=== PATIENT | female | born 1985 | race Caucasian/White ===

== ENCOUNTER 2016-05-30 10:35 | Emergency (ER) | payer BC ==
[2016-05-30 10:53] VITALS: BP 154/86
--- NOTE | 2016-05-30 12:27 | UC ---
Respiratory Complaint HPI - History of Current Complaint Chief Complaint: UCEar Stated Complaint: EAR PAIN,CONGESTION Time Seen by Provider: 05/30/16 12:16 Hx Obtained From: Patient Hx Last Menstrual Period: 1.5 weeks ago - has IUD ?: No Onset/Duration: Gradual Onset - has had URI over past 1-2 weeks, yesterday got R ear ache. also today her child was dx influenza (swab) at pediatrics. pt did not have a flu vacc this year Severity Initially: Mild Severity Currently: Moderate Aggravating Factors: Nothing Alleviating Factors: Nothing Associated Signs And Symptoms: Positive: Fever - off and on, URI, Nasal Congestion - Risk Factors Cardiac Risk Factors: Negative - Allergies/Home Medications Allergies/Adverse Reactions: Allergies Allergy/AdvReac Type Severity Reaction Status Date / Time Amoxicillin Allergy Mild Hives Verified 05/30/16 10:53 Penicillin G Allergy Hives Verified 05/30/16 10:53 Home Medications: Home Medications Lpbwkmetctufq-Lagebbowtn-Dqrmw [Vicks Dayquil/Nyquil Cold] 1 dose PO BEDTIME PRN 05/30/16 [History Confirmed 05/30/16] PMH/Surg Hx/FS Hx/Imm Hx Previously Healthy: Yes Endocrine History Of: Denies: Diabetes, Thyroid Disease Cardiovascular History Of: Denies: Cardiac Disorders, Hypertension Respiratory History Of: Denies: COPD, Asthma GI/ History Of: Denies: Ulcer - Surgical History Surgical History: Yes Surgery Procedure, Year, and Place: spleen and gall bladder removed 1991. wisdom teeth 2009, 04/08/15 - Family History Known Family History: Positive: None - Social History Occupation: Employed Full-time - entry level programmer care Lives: With Family Alcohol Use: Occasionally Alcohol Amount: Weekends on occasion Substance Use Type: None Smoking Status (MU): Never Smoked Tobacco Have You Smoked in the Last Year: No - Immunization History Most Recent Influenza Vaccination: 01/25/16 Most Recent Tetanus Shot: 01/03/15 Most Recent Pneumonia Vaccination: never Review of Systems Constitutional: Fever Skin: Negative Eyes: Negative ENT: Ear Ache, Other - nasal carlos Respiratory: Negative Cardiovascular: Negative Genitourinary: Negative Neurological: Negative Psychological: Negative All Other Systems Reviewed And Are Negative: Yes Physical Exam Triage Information Reviewed: Yes Appearance: Well-Appearing, No Pain Distress, Well-Nourished Vital Signs: Initial Vital Signs Temp 98.6 F 05/30/16 10:49 Pulse 76 05/30/16 10:49 Resp 16 05/30/16 10:49 BP 154/86 05/30/16 10:49 Pulse Ox 99 05/30/16 10:49 Vital Signs Reviewed: Yes Eyes: Positive: Conjunctiva Clear ENT: Positive: Pharynx normal, TM bulging, TM dull, TM red - R TM left normal, Other: - PND-clear Neck exam: Normal Neck: Positive: No Lymphadenopathy Respiratory Exam: Normal Respiratory: Positive: Lungs clear Cardiovascular Exam: Normal Cardiovascular: Positive: RRR Neurological Exam: Normal Psychological Exam: Normal Skin Exam: Normal Skin: Negative: rashes UC Diagnostic Evaluation - Laboratory O2 Sat by Pulse Oximetry: 99 Respiratory Course/Dx - Differential Dx/Diagnosis Differential Diagnosis/HQI/PQRI: Influenza, Lower Resp Infection, Sinusitis, Other - OM Provider Diagnoses: ROM, sinusitis Discharge - Discharge Plan Condition: Stable Disposition: HOME Prescriptions: Oseltamivir CAP* [Tamiflu CAP*] 75 mg PO DAILY #10 cap Sulfamethox/Trimethoprim DS* [Bactrim DS 800/160 TAB*] 1 tab PO BID #20 tab Patient Education Materials: Influenza (ED), Otitis Media (ED) Referrals: Yoseph Haas MD [Primary Care Provider] - 3 Days (if no better) Additional Instructions: start Tamiflu today Use Bactrim for ear infection drink plenty of fluids and report worsening symptoms
== END 2016-05-30 12:40 | disposition home or self-care (01) ==
LOC: UCEAST 10:35
DX: H66.91 Otitis media, unspecified, right ear (principal); J32.9 Chronic sinusitis, unspecified; Z88.1 Allergy status to other antibiotic agents; Z88.0 Allergy status to penicillin
CPT/HCPCS: 99212; G0463

== ENCOUNTER 2016-08-20 17:38 | Emergency (ER) | payer BC ==
[2016-08-20 18:00] VITALS: BP 166/83
--- NOTE | 2016-08-20 18:41 | UC ---
Respiratory Complaint HPI - HPI Summary HPI Summary: The patient comes in today for: 1. Cough, hoarse voice, right otalgia, sore throat: Onset: 3 days ago. Palliative/provocative: Nyquil helped her to sleep. Quality: Ache, irritation in throat. Region: Upper respiratory. Severity: 4/10 Time: Constant. Associated symptoms: Fevers: No temperature taken. Cough: Dry. Wheezing: NOne Shortness of breath: "a little." Rhinitis: thin, greenish. Sinus pressures: None. Sore throat: Present. * - History of Current Complaint Chief Complaint: UCRespiratory Stated Complaint: COUGH,EAR PAIN Time Seen by Provider: 08/20/16 18:33 Hx Obtained From: Patient Hx Last Menstrual Period: Mirena IUD - Allergies/Home Medications Allergies/Adverse Reactions: Allergies Allergy/AdvReac Type Severity Reaction Status Date / Time Amoxicillin Allergy Mild Hives Verified 08/20/16 18:00 Penicillin G Allergy Hives Verified 08/20/16 18:00 Home Medications: Home Medications Odcxysukqftfy-Xwaazpypnf-Bcegg [Daytime/Nite Time Cold/Fl] 1 dose PO DAILY PRN 08/20/16 [History Confirmed 08/20/16] PMH/Surg Hx/FS Hx/Imm Hx Previously Healthy: Yes Endocrine History Of: Denies: Diabetes, Thyroid Disease, Hyperthyroidism, Hypothyroidism, Dyslipidemia Cardiovascular History Of: Denies: Cardiac Disorders, Hypertension, Pacemaker/ICD, Myocardial Infarction , Congestive Heart Failure, Atrial Fibrillation, Deep Vein Thrombosis, Bleeding Disorders Respiratory History Of: Denies: COPD, Asthma, Bronchitis, Pneumonia, Pulmonary Embolism GI/ History Of: Denies: Gastroesophageal Reflux, Ulcer, Gastrointestinal Bleed, Gall Bladder Disease, Kidney Stones, Diverticulitis, Renal Disease, Urosepsis Neurological History Of: Denies: TIA, CVA, Dementia, Seizures, Migraine Psychological History Of: Denies: Anxiety, Depression, Bipolar Disorder, Schizophrenia, Post Traumatic Stress Disorder Cancer History Of: Denies: Lung Cancer, Colorectal Cancer, Breast Cancer, Prostate Cancer, Cervical Cancer Other History Of: Negative For: HIV, Hepatitis B, Hepatitis C, Anticoagulant Therapy - Surgical History Surgical History: Yes Surgery Procedure, Year, and Place: spleen and gall bladder removed 1991. wisdom teeth 2009, 04/08/15 - Family History Known Family History: Positive: Cardiac Disease, Hypertension - Social History Occupation: Employed Full-time Alcohol Use: Occasionally Alcohol Amount: Weekends on occasion Substance Use Type: None Smoking Status (MU): Never Smoked Tobacco Have You Smoked in the Last Year: No - Immunization History Most Recent Influenza Vaccination: 01/25/16 Most Recent Tetanus Shot: 01/03/15 Most Recent Pneumonia Vaccination: never Review of Systems Constitutional: Negative Skin: Negative Eyes: Negative ENT: Ear Ache, Nasal Discharge Respiratory: Shortness Of Breath, Cough Cardiovascular: Negative Gastrointestinal: Negative Genitourinary: Negative All Other Systems Reviewed And Are Negative: Yes Physical Exam Triage Information Reviewed: Yes Appearance: Well-Appearing, No Pain Distress, Well-Nourished Vital Signs: Initial Vital Signs Temp 97.5 F 08/20/16 17:55 Pulse 69 08/20/16 17:55 Resp 16 08/20/16 17:55 BP 166/83 08/20/16 17:55 Pulse Ox 99 08/20/16 17:55 Vital Signs Reviewed: Yes Eyes: Positive: Conjunctiva Clear. Negative: Discharge ENT: Positive: Hearing grossly normal. Negative: Pharyngeal erythema, Nasal congestion, Nasal drainage, TM bulging, TM dull, TM red, Tonsillar swelling, Tonsillar exudate, Muffled/hoarse voice Dental: Negative: Gross Decay/Caries @, Dental Fracture @ Neck: Positive: Supple, Nontender, No Lymphadenopathy. Negative: Nuchal Rigidity Respiratory: Positive: Lungs clear, No respiratory distress, No accessory muscle use. Negative: Crackles, Wheezing Cardiovascular: Positive: RRR, No Murmur Abdomen Description: Positive: Nontender, No Organomegaly, Soft. Negative: Distended, Guarding Musculoskeletal: Positive: Strength Intact, ROM Intact Neurological: Positive: Alert, Muscle Tone Normal Psychological: Positive: Age Appropriate Behavior, Consolable Skin: Negative: rashes, breakdown UC Diagnostic Evaluation - Laboratory O2 Sat by Pulse Oximetry: 99 Diagnostic Studies Comment: Strep test: (-) Respiratory Course/Dx - Course Course Of Treatment: Patient was told of the negative strep test, normal ear exam and impression that she has a viral upper respiratory infection. She was concerned that she may get worse, and therefore was told of the option of sending an antibiotic in the event she does develop symptoms of sinusitis. She said that she would like to do this, but did not want Z pack. - Differential Dx/Diagnosis Provider Diagnoses: Upper respiratory infection. Discharge - Discharge Plan Condition: Stable Disposition: HOME Patient Education Materials: Upper Respiratory Infection (ED) Referrals: Yoseph Haas MD [Primary Care Provider] - 1 Week (Please see your primary care provider in a week to see how well you are doing. If you get worse, please be seen sooner in the ER or through us.)
== END 2016-08-20 19:19 | disposition home or self-care (01) ==
LOC: UCEAST 17:38
DX: J06.9 Acute upper respiratory infection, unspecified (principal)
CPT/HCPCS: 87651; 99212; G0463

== ENCOUNTER 2017-01-26 11:26 | Emergency (ER) | payer BC ==
[2017-01-26 11:47] VITALS: BP 150/77
--- NOTE | 2017-01-26 12:45 | UC ---
FLU HPI - HPI Summary HPI Summary: 31 y/o female with PMH of HTN, allergies who presents with 1) L eye drainage x 1 day with crusty eye this morning. 2) cough/ congestion/ headache. 3) fatigue. patient states having fever, chills, sometimes productive cough with green phlegm. is around children. - History of Current Complaint Chief Complaint: UCRespiratory Stated Complaint: COUGH Time Seen by Provider: 01/26/17 12:21 Hx Obtained From: Patient Hx Last Menstrual Period: iud ?: No Onset/Duration: Sudden Onset Severity Currently: Moderate Severity Initially: Moderate - Allergy/Home Medications Allergies/Adverse Reactions: Allergies Allergy/AdvReac Type Severity Reaction Status Date / Time Amoxicillin Allergy Mild Hives Verified 08/20/16 18:00 Penicillin G Allergy Hives Verified 08/20/16 18:00 Home Medications: Home Medications Amlodipine Besylate [Norvasc 2.5 mg tab] 2.5 mg PO DAILY 01/26/17 [History Confirmed 01/26/17] Ipratropium [place] 1 pow XX 01/26/17 [History] Loratadine 10 mg PO 01/26/17 [History] Fdzfjtfpbxsvn-Exvqfcrett-Uvqia [Nyquil Severe Cold/Flu 5-6.25-10-325 mg/15Ml] 1 liq PO 01/26/17 [History Confirmed 01/26/17] PMH/Surg Hx/FS Hx/Imm Hx Previously Healthy: Yes - htn, asthma Other History Of: Negative For: HIV, Hepatitis B, Hepatitis C, Anticoagulant Therapy - Surgical History Surgical History: Yes Surgery Procedure, Year, and Place: spleen and gall bladder removed 1991. wisdom teeth 2009, 04/08/15 - Family History Known Family History: Positive: Cardiac Disease, Hypertension - Social History Alcohol Use: Occasionally Alcohol Amount: Weekends on occasion Substance Use Type: None Smoking Status (MU): Never Smoked Tobacco Have You Smoked in the Last Year: No - Immunization History Most Recent Influenza Vaccination: 01/25/16 Most Recent Tetanus Shot: 01/03/15 Most Recent Pneumonia Vaccination: never Review of Systems Constitutional: Fever, Chills, Fatigue Eyes: Drainage ENT: Sore Throat, Sinus Congestion, Sinus Pain/Tenderness Respiratory: Cough Is Patient Immunocompromised?: No All Other Systems Reviewed And Are Negative: Yes Physical Exam Triage Information Reviewed: Yes Appearance: Well-Appearing, No Pain Distress, Well-Nourished Vital Signs: Initial Vital Signs Temp 98.6 F 01/26/17 11:44 Pulse 102 01/26/17 11:44 Resp 18 01/26/17 11:44 BP 150/77 01/26/17 11:44 Pulse Ox 98 01/26/17 11:44 Vital Signs Reviewed: Yes Eyes: Positive: Conjunctiva Clear ENT: Positive: Pharyngeal erythema - mild, TM red - left side, Tonsillar swelling - minimal Neck: Positive: Supple, Nontender, Enlarged Nodes @ - b/l subman. Respiratory: Positive: Chest non-tender, Lungs clear, Normal breath sounds, No respiratory distress, No accessory muscle use. Negative: Crackles, Rhonchi, Stridor, Wheezing Cardiovascular: Positive: RRR, No Murmur, Pulses Normal Musculoskeletal Exam: Normal Neurological Exam: Normal Psychological Exam: Normal Skin Exam: Normal Flu Course/Dx - Course Course Of Treatment: antibiotics given, work note. - Differential Dx/Diagnosis Differential Diagnosis/HQI/PQRI: Bronchitis, Broncholiolitis, Upper Respiratory Infection Provider Diagnoses: conjunctivitis, L eye, sinusitis Discharge - Discharge Plan Condition: Good Disposition: HOME Prescriptions: Ciprofloxacin 0.3% OPTH.NILESH* [Cipro 0.3% Opth*] 1 drop LEFT EYE Q4H #1 btl Sulfamethox/Trimethoprim DS* [Bactrim DS 800/160 TAB*] 1 tab PO BID #10 tab guaiFENesin/CODIEN 100MG-10MG* [Robitussin AC 100Mg-10Mg*] 5 ml PO Q4H PRN #30 ml MDD 2 PRN Reason: Cough Patient Education Materials: Sinusitis (ED), Conjunctivitis (ED) Forms: *Work Release Referrals: Yoseph Haas MD [Primary Care Provider] - Additional Instructions: - conjuctivitis- antibiotic eye drops x 5 day or until symptom free x 24 hours , very contagious - Sinusitis- antibiotics as directed. - increase fluid intake
== END 2017-01-26 13:05 | disposition home or self-care (01) ==
LOC: UCEAST 11:26
DX: H10.32 Unspecified acute conjunctivitis, left eye (principal); J32.9 Chronic sinusitis, unspecified; I10 Essential (primary) hypertension; J45.909 Unspecified asthma, uncomplicated; Z90.49 Acquired absence of other specified parts of digestive tract; Z90.81 Acquired absence of spleen; Z88.0 Allergy status to penicillin
CPT/HCPCS: 99212; G0463

== ENCOUNTER 2018-05-25 05:51 | Inpatient (IN) | payer BC ==
[~2018-05-25 05:51] MED LIST: Buffered Lidocaine 1% SYRIN* 1 ML/SYRINGE INTRADERM ONE
[2018-05-25] MEDS ORDERED: Sodium Citrate/Citric Acid* 15 ML UDC PO ONE (06:00)
[2018-05-25] MEDS ORDERED: Lactated Ringers 1000 ML Bag* 1,000 ML IV SCH ×2 (06:00→10:00)
[2018-05-25] MEDS ORDERED: Morphine PF AMP (0.5MG/ML)* 5 MG/10 ML AMP ONE (07:31)
[2018-05-25] MEDS ORDERED: ceFOXitin 2 GM IVPREMIX* 2 GM/50 ML BAG IVPB ONE (08:00)
[2018-05-25] MEDS ORDERED: Lidocaine 2% PF* 10 ML AMP ONE (08:44)
[2018-05-25] MEDS ORDERED: EPHEDrine (Pressors)* 50 MG/ML VIAL ONE (08:44)
[2018-05-25] MEDS ORDERED: Phenylephrine IV* 40 MCG/ML 10 ML SYRINGE ONE (08:44)
[2018-05-25] MEDS ORDERED: OXYTOCIN* 10 UNITS/ML 1 ML VIAL ONE (08:44)
[2018-05-25] MEDS ORDERED: Remifentanil* 2 MG VIAL ONE (08:46)
[2018-05-25] MEDS ORDERED: Naloxone* 0.4 MG/ML 1 ML VIAL IV PRN ×2 (09:09→09:12)
[2018-05-25] MEDS ORDERED: fentaNYL* 50 MCG/ML 2 ML VIAL (100 MCG VIAL) IV PRN (09:09)
[2018-05-25] MEDS ORDERED: Ketorolac INJ* 30 MG/ML 1 ML VIAL ONE (09:11)
[2018-05-25] MEDS ORDERED: oxyCODONE/Acetamin 5/325 MG* TAB PO PRN (09:12)
[2018-05-25] MEDS ORDERED: Naloxone* 2 MG in NS 0.9% 250 ML* 250 ML IV PRN (09:12)
[2018-05-25] MEDS ORDERED: Nalbuphine* 10 MG/ML 1 ML VIAL IV PRN (09:12)
[2018-05-25] MEDS ORDERED: Ketorolac INJ* 30 MG/ML 1 ML VIAL IV PRN (09:12)
[2018-05-25] MEDS ORDERED: Ondansetron INJ* 2 MG/ML VIAL IV PRN (09:12)
[2018-05-25] MEDS ORDERED: Glycerin ADULT SUPP PR PRN (09:48)
[2018-05-25] MEDS ORDERED: Witch Hazel PAD* JAR TOPICAL PRN (09:48)
[2018-05-25] MEDS ORDERED: Oxytocin in LR* 20 UNITS/1,000 ML BAG IVPB ONE (09:50)
[2018-05-25] MEDS: Simethicone TAB* 80 MG TAB.CHEW PO SCH ×3 (13:26→20:15)
[2018-05-25] MEDS: Docusate CAP* 100 MG PO SCH ×2 (13:26→20:15)
[2018-05-25] MEDS: Acetaminophen TAB* 325 MG PO PRN ×2 (14:29→20:15)
[2018-05-25] MEDS: Ibuprofen TAB* 600 MG PO PRN ×2 (16:10→23:44)
--- NOTE | 2018-05-25 22:10 | OP ---
D\ATE OF OPERATION: 05/25/18 - ROOM #116 DATE OF : 81 SURGEON: Citlalli Hein MD SUPERVISOR COLOR MAKING: Henny Ray CNM and Rox Silvestre CNM ANESTHESIA: Spinal. ANESTHESIOLOGIST: Dr. Carver. PRE-OP DIAGNOSIS: Thirty nine plus 2 weeks gestation with gestational hypertension and history of . POST-OP DIAGNOSIS: Thirty nine plus 2 weeks gestation with gestational hypertension and history of . OPERATIVE PROCEDURE: Repeat low-transverse section with vacuum assist. ESTIMATED BLOOD LOSS: 700 cc. URINE OUTPUT: 100 cc. IV FLUIDS: 2000 cc lactated Ringer's. MATERIALS TO LAB: Cord blood. INDICATIONS: This patient is a 32-year-old 2, para 1, who presented today for her scheduled section. The patient had history of a previous C- section and had recently also developed mild gestational hypertension. She was extensively counseled and consent was signed. FINDINGS: Normal-appearing uterus, fallopian tubes, and ovaries. Delivery is productive of a female infant weighing 7 pounds, and with Apgars of 9 and 9. Time of delivery was 0842. COMPLICATIONS: None. DESCRIPTION OF PROCEDURE: The risks, benefits, and alternatives were described to the patient, and informed consent was obtained. The patient was taken to the operating room with IV running, where spinal anesthesia was induced and found to be adequate. The patient was prepped and draped in normal sterile fashion in the dorsal supine position with a leftward tilt. A Pfannenstiel skin incision was made with a scalpel through the patient's previous incision. This was carried down to the underlying fascia using the scalpel. The fascia was scored in the midline, and the incision was extended using Graham scissors. The fascia was dissected off the underlying rectus muscles using blunt and sharp dissection. The rectus muscles were in the midline using dissection with a Carolina clamp. The peritoneum was then entered bluntly. A bladder blade was placed. A bladder flap was created sharply using Metzenbaum scissors. A low transverse uterine incision was then made with the scalpel. This was carried down to the amniotic membranes. The lower uterus was quite thick as the pt had not labored. The membranes were then ruptured, productive of clear fluid. The uterine incision was extended using blunt traction. The head was grasped and brought to the incision, but, with fundal pressure, the infant could not be adequately pushed down. A Kiwi vacuum was placed on the head and with gentle traction and firm fundal pressure, the head was delivered. The shoulders then were also both delivered and the body followed. The infant had excellent tone and cried immediately on delivery. The cord was doubly clamped and cut. The was then handed to the awaiting keymodule assembly machine tender. Cord blood was collected. The placenta was delivered with manual extraction. The uterus was then exteriorized and cleared of all clots and debris. The uterine incision was then reapproximated using 0 Vicryl in a running-locked fashion. A second layer of imbricating 0 Vicryl sutures was then also placed for good hemostasis. The posterior cul-de-sac was irrigated with saline. The uterus was then returned to the abdomen. The incision was reinspected and still noted to be hemostatic. The peritoneum was closed with 3-0 Vicryl in a running fashion. The fascia was closed with 0 Polysorb in a running fashion. The subcutaneous tissues were copiously irrigated and made hemostatic using the bovie. The subcutaneous tissues were then reapproximated using 3-0 Vicryl in interrupted sutures. The skin was then closed with 4-0 Monocryl. Mastisol and steristrips were then applied. A sterile bandage was then placed over the incision. The patient tolerated the procedure well. Sponge, lap, and needle counts were correct x2. [id number]/[facility] #: [id number] MTDD
[2018-05-26] MEDS ORDERED: oxyCODONE/Acetamin 5/325 MG* TAB PO PRN ×2 (00:11)
[2018-05-26] MEDS: Acetaminophen TAB* 325 MG PO PRN ×3 (03:50→21:44)
[2018-05-26] MEDS: Ibuprofen TAB* 600 MG PO PRN ×3 (06:43→19:35)
[2018-05-26 07:08] LABS: Hematocrit 31 % (35-47); Hemoglobin 10.6 g/dl (12.0-16.0); Mean Corpuscular HGB Conc 34 g/dl (31-36); Mean Corpuscular Hemoglobin 29 pg (27-31); Mean Corpuscular Volume 86 fL (80-97); Mean Platelet Volume 9.3 fL (7.4-10.4); Platelet Count 306 10^3/ul (150-450); Red Cell Distribution Width 14 % (10.5-15); White Blood Count 17.3 10^3/ul (3.5-10.8)
[2018-05-26 07:57] LABS: ABS Basophils 0 10^3/ul (0-0.2); ABS Eosinophils 0.2 10^3/ul (0-0.6); ABS Lymphocytes 2.3 10^3/ul (1.0-4.8); ABS Monocytes 2.3 10^3/ul (0-0.8); ABS Neutrophils 12.5 10^3/ul (1.5-7.7); ABS Nucleated RBC 0 10^3/ul; Eosinophil % 0.9 %; Lymphocyte % 13.5 %; Nucleated Red Blood Cells % 0
[2018-05-26] MEDS ORDERED: Ferrous Gluconate TAB* 324 MG TAB PO SCH (09:00)
[2018-05-26] MEDS: Simethicone TAB* 80 MG TAB.CHEW PO SCH ×4 (09:15→21:45)
[2018-05-26] MEDS: Docusate CAP* 100 MG PO SCH ×3 (09:15→21:44)
[2018-05-26] MEDS ORDERED: Measles, Mumps,Rubella VACC* 0.5 ML/VIAL SUBCUT ONE (14:45)
[2018-05-27] MEDS: Ibuprofen TAB* 600 MG PO PRN ×3 (00:57→18:05)
[2018-05-27] MEDS: Acetaminophen TAB* 325 MG PO PRN ×2 (04:00→21:11)
[2018-05-27] MEDS: Simethicone TAB* 80 MG TAB.CHEW PO SCH ×4 (08:45→21:11)
[2018-05-27] MEDS: Docusate CAP* 100 MG PO SCH ×3 (08:45→21:11)
[2018-05-28] MEDS: Ibuprofen TAB* 600 MG PO PRN ×3 (00:26→14:42)
[2018-05-28] MEDS: Docusate CAP* 100 MG PO SCH ×2 (08:05→13:20)
[2018-05-28] MEDS: Simethicone TAB* 80 MG TAB.CHEW PO SCH ×2 (08:05→13:20)
[2018-05-28 08:12] VITALS: BP 148/85
== END 2018-05-28 18:15 | disposition home or self-care (01) | DRG 540 ==
LOC: MCHOB 05:51
PROVIDERS: ADMIT Obstetrics & Gynecology; ATTEND Obstetrics & Gynecology
PROC: 10D00Z1 Extraction of Products of Conception, Low, Open Approach (ICD-10-PCS; principal; 2018-05-25 07:45)
DX: O34.211 Maternal care for low transverse scar from previous cesarean delivery (principal); O13.4 Gestational [pregnancy-induced] hypertension without significant proteinuria, complicating childbirth; O69.81X0 Labor and delivery complicated by cord around neck, without compression, not applicable or unspecified; Z3A.39 39 weeks gestation of pregnancy; Z37.0 Single live birth
CPT/HCPCS: 36415; 85025; A9270-GY; J0694; J1885; J2001; J2590

== ENCOUNTER 2018-08-04 10:17 | Emergency (ER) | payer BC ==
[2018-08-04 10:35] VITALS: BP 170/100
--- NOTE | 2018-08-04 11:10 | UC ---
Eye Complaint HPI - HPI Summary HPI Summary: 32 -year-old female who has had a red eye over the past 24 hours with yellowish drainage. She just been in the hospital with her daughter who was a patient for 4 days. The mother has not had any cold symptoms recently. - History of Current Complaint Chief Complaint: UCEye Stated Complaint: EYE COMPLAINT Time Seen by Provider: 08/04/18 10:59 Hx Obtained From: Patient Hx Last Menstrual Period: 2 weeks ago ?: No - breast-feeding Onset/Duration: Gradual Onset Timing: Constant Severity Initially: Mild Severity Currently: Mild Pain Intensity: 1 Location of Injury: Other - No Injury, no feeling of foreign body. Aggravating Factor(s): Nothing Alleviating Factor(s): Nothing Associated Signs And Symptoms: Positive: Drainage (Purulent) - Yellow crusty drainage this morning. - Allergies/Home Medications Allergies/Adverse Reactions: Allergies Allergy/AdvReac Type Severity Reaction Status Date / Time amoxicillin Allergy Hives Verified 08/04/18 10:28 Penicillins Allergy Hives Verified 08/04/18 10:28 PMH/Surg Hx/FS Hx/Imm Hx Previously Healthy: Yes GI/ History: Other - 10 Weeks Other History Of: Negative For: HIV, Hepatitis B, Hepatitis C, Anticoagulant Therapy - Surgical History Surgical History: Yes Surgery Procedure, Year, and Place: spleen and gall bladder removed 1991. wisdom teeth 2009, 04/08/15 - Family History Known Family History: Positive: Cardiac Disease, Hypertension - Social History Alcohol Use: Rare Alcohol Amount: Weekends on occasion Substance Use Type: None Smoking Status (MU): Never Smoked Tobacco Have You Smoked in the Last Year: No - Immunization History Most Recent Influenza Vaccination: 12/31/17 Most Recent Tetanus Shot: 01/03/15 Most Recent Pneumonia Vaccination: never Review of Systems All Other Systems Reviewed And Are Negative: Yes Eyes: Positive: Drainage - Yellow drainage and redness right eye., Eye Redness Is Patient Immunocompromised?: No Physical Exam Triage Information Reviewed: Yes Appearance: Well-Appearing, No Pain Distress, Well-Nourished Vital Signs: Initial Vital Signs Temp 97.3 F 08/04/18 10:30 Pulse 83 08/04/18 10:30 Resp 18 08/04/18 10:30 BP 170/100 08/04/18 10:30 Pulse Ox 98 08/04/18 10:30 Vital Signs Reviewed: Yes Eyes: Positive: Conjunctiva Inflamed, Discharge - All amount of yellow drainage at the inner canthus of her right eye. Stye formation is noted. ENT: Positive: Normal ENT inspection, Hearing grossly normal, Pharynx normal, TMs normal, Uvula midline Neck: Positive: Supple, Nontender, No Lymphadenopathy Respiratory: Positive: Lungs clear, Normal breath sounds, No respiratory distress, No accessory muscle use Cardiovascular: Positive: RRR, No Murmur, Pulses Normal, Brisk Capillary Refill Eye Complaint Course/Dx - Course Course Of Treatment: Patient is comfortable here. I'm going to treat her with tobramycin ophthalmic drops 1 drop in the right eye every 4 hours while awake for 7 days. Good handwashing. He is to follow-up with an dental technology advisor if no improvement in 3 or 4 days. - Differential Dx/Diagnosis Provider Diagnosis: Conjunctivitis Discharge - Sign-Out/Discharge Documenting (check all that apply): Patient Departure All imaging exams completed and their final reports reviewed: No Studies - Discharge Plan Condition: Fair Disposition: HOME Prescriptions: Tobramycin 0.3% OPHTH.NILESH* 1 drop RIGHT EYE Q4H 7 Days #1 btl Patient Education Materials: Conjunctivitis (ED) Referrals: Yoseph Haas MD [Primary Care Provider] - Additional Instructions: Good handwashing. Follow up with your primary care provider or an dental technology advisor on Wednesday if no improvement. - Billing Disposition and Condition Condition: FAIR Disposition: Home
== END 2018-08-04 11:19 | disposition home or self-care (01) ==
LOC: UCEAST 10:17
DX: H10.31 Unspecified acute conjunctivitis, right eye (principal); Z88.0 Allergy status to penicillin
CPT/HCPCS: 99212; G0463

== ENCOUNTER 2018-08-07 16:41 | Emergency (ER) | payer BC ==
--- NOTE | 2018-08-07 16:44 | UC ---
Ear Complaint HPI - History of Current Complaint Stated Complaint: EAR COMPLAINT, SORE THROAT Time Seen by Provider: 08/07/18 16:42 Hx Last Menstrual Period: 2 weeks ago - Allergies/Home Medications Allergies/Adverse Reactions: Allergies Allergy/AdvReac Type Severity Reaction Status Date / Time amoxicillin Allergy Hives Verified 08/04/18 10:28 Penicillins Allergy Hives Verified 08/04/18 10:28 PMH/Surg Hx/FS Hx/Imm Hx Other History Of: Negative For: HIV, Hepatitis B, Hepatitis C, Anticoagulant Therapy - Surgical History Surgical History: Yes Surgery Procedure, Year, and Place: spleen and gall bladder removed 1991. wisdom teeth 2009, 04/08/15 - Family History Known Family History: Positive: Cardiac Disease, Hypertension - Social History Alcohol Use: Rare Alcohol Amount: Weekends on occasion Substance Use Type: None Smoking Status (MU): Never Smoked Tobacco Have You Smoked in the Last Year: No - Immunization History Most Recent Influenza Vaccination: 12/31/17 Most Recent Tetanus Shot: 01/03/15 Most Recent Pneumonia Vaccination: never Discharge - Discharge Plan Referrals: Yoseph Haas MD [Primary Care Provider] -
[2018-08-07 17:02] VITALS: BP 143/101
--- NOTE | 2018-08-07 17:12 | UC ---
FLU HPI - HPI Summary HPI Summary: 32 year old female presents with 2 day history of fever, severe nasal congestion , green nasal discharge, sinus pressure, ear pain, and sore throat. She was seen at this facility on 08/04/2018 for conjunctivitis. States her symptoms started the next day. Her daughter was recently hospitalized for URI symptoms. Denies dysphagia, cough, chest pain, SOB, abdominal pain, nausea, or vomiting. She is currently breast feeding but does supplement with formula. - History of Current Complaint Chief Complaint: UCGeneralIllness Stated Complaint: EAR COMPLAINT, SORE THROAT Time Seen by Provider: 08/07/18 16:42 Hx Obtained From: Patient Hx Last Menstrual Period: 2 weeks ago Pain Intensity: 6 - Allergy/Home Medications Allergies/Adverse Reactions: Allergies Allergy/AdvReac Type Severity Reaction Status Date / Time amoxicillin Allergy Hives Verified 08/07/18 17:02 Penicillins Allergy Hives Verified 08/07/18 17:02 Home Medications: Home Medications Ferrous Sulfate TAB* 325 mg PO DAILY 08/07/18 [History Confirmed 08/07/18] PMH/Surg Hx/FS Hx/Imm Hx - Additional Past Medical History Additional PMH: Hereditary spherocytosis Other History Of: Negative For: HIV, Hepatitis B, Hepatitis C, Anticoagulant Therapy - Surgical History Surgical History: Yes Surgery Procedure, Year, and Place: spleen and gall bladder removed 1991. wisdom teeth 2009, 04/08/15, 05/25/2018 - Family History Known Family History: Positive: Cardiac Disease, Hypertension - Social History Occupation: Employed Full-time Lives: With Family Alcohol Use: Rare Alcohol Amount: Weekends on occasion Substance Use Type: None Smoking Status (MU): Never Smoked Tobacco Have You Smoked in the Last Year: No - Immunization History Most Recent Influenza Vaccination: 12/31/17 Most Recent Tetanus Shot: 01/03/15 Most Recent Pneumonia Vaccination: never Review of Systems All Other Systems Reviewed And Are Negative: Yes Constitutional: Positive: Fever, Chills, Fatigue, Other - Malaise Skin: Negative: Rash Eyes: Negative: Drainage, Eye Redness ENT: Positive: Sore Throat, Ear Ache, Nasal Discharge, Sinus Congestion, Sinus Pain/Tenderness Respiratory: Negative: Shortness Of Breath, Cough Cardiovascular: Negative: Palpitations, Chest Pain Gastrointestinal: Negative: Abdominal Pain, Vomiting, Diarrhea, Nausea Genitourinary: Positive: Negative Musculoskeletal: Positive: Negative Neurological: Positive: Negative Is Patient Immunocompromised?: No Physical Exam - Summary Physical Exam Summary: GENERAL APPEARANCE: Well developed, well nourished, alert and cooperative, and appears to be in no acute distress. EYES: Conjunctiva clear. No drainage. EARS: External auditory canals clear, hearing grossly intact. Right TM erythematous and dull. Left TM opaque with good cone of light. NOSE: Moderate nasal congestion with mucosal erythema and edema. Maxillary sinus tenderness. THROAT: Pharyngeal cobblestoning. No tonsilar inflammation, swelling, exudate, or lesions. Uvula midline. Oral cavity normal. Teeth and gingiva in good general condition. NECK: Neck supple, non-tender without lymphadenopathy. CARDIAC: Normal S1 and S2. No S3, S4 or murmurs. Rhythm is regular. There is no peripheral edema, cyanosis or pallor. Extremities are warm and well perfused. Capillary refill is less than 2 seconds. Peripheral pulses intact. LUNGS: Clear to auscultation without rales, rhonchi, wheezing or diminished breath sounds. ABDOMEN: Positive bowel sounds. Soft, nondistended, nontender. No guarding or rebound. No masses or hepatosplenomegally. MUSKULOSKELETAL: ROM intact to all extremities. No joint erythema or tenderness. Normal muscular development. Normal gait. SKIN: Skin normal color, texture and turgor with no lesions or eruptions. Triage Information Reviewed: Yes Vital Signs: Initial Vital Signs Temp 100.1 F 08/07/18 16:57 Pulse 109 08/07/18 16:57 Resp 20 08/07/18 16:57 BP 143/101 08/07/18 16:57 Pulse Ox 100 08/07/18 16:57 Vital Signs Reviewed: Yes Flu Course/Dx - Course Course Of Treatment: 32 year old female presents with 2 day history of fever, severe nasal congestion , green nasal discharge, sinus pressure, ear pain, and sore throat. She was seen at this facility on 08/04/2018 for conjunctivitis. States her symptoms started the next day. Her infant daughter was recently hospitalized for URI symptoms. Denies dysphagia, cough, chest pain, SOB, abdominal pain, nausea, or vomiting. She is currently breast feeding but does supplement with formula. Mildly elevated temperature of 100.9 F. Hypertensive otherwise vital signs stable. Exam was remarkable for moderate nasal congestion with mucosal erythema and edema, maxillary sinus tenderness, right erythematous and dull TM. 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 Will treat with doxycycline 100 mg BID x 7 days as well as recommend symptomatic treatment including fluticasone nasal spray and saline rinses. She is to follow up with her PCP in 3-5 days if symptoms persist. Anticipatory guidance and warning symptoms reviewed with patient. Verbalizes understanding and agrees with POC. - Differential Dx/Diagnosis Differential Diagnosis/HQI/PQRI: Broncholiolitis, Influenza, Pneumonia, Upper Respiratory Infection, Other - Tonsillitis, sinusitis Provider Diagnosis: Acute bacterial rhinosinusitis, Right otitis media Discharge - Sign-Out/Discharge Documenting (check all that apply): Patient Departure All imaging exams completed and their final reports reviewed: No Studies - Discharge Plan Condition: Stable Disposition: HOME Prescriptions: Doxycycline Hyclate 100 mg PO BID #14 tablet Fluticasone NASAL SPRAY 50MCG* [Flonase NASAL SPRAY 50MCG*] 2 spray BOTH NARES DAILY #1 btl Patient Education Materials: Rhinosinusitis (ED) Referrals: Yoseph Haas MD [Primary Care Provider] - 3 Days Additional Instructions: Your history and exam are consistent with a sinus infection. With your fever and evidence of a right ear infection I am going to treat you with an antibiotic. Start doxycycline 100 mg twice a day for 7 days. Drink plenty of fluids to avoid dehydration especially if you are running any fever. Use a saline rinse kit such as Neti Pot or NeilMed at least twice a day to help thin secretions and promote drainage of the sinuses. Use fluticasone (Flonase) nasal spray 2 sprays each nostril once daily. Take over the counter acetaminophen (Tylenol) or ibuprofen (Advil, Motrin) according to directions as needed for pain or fever. Follow up with your primary care provider in 3-5 days if symptoms persist. Your blood pressure was elevated in the clinic today. It is recommended that you have this rechecked by your primary care provider within 4 weeks. Seek immediate medical attention in the emergency room if you have fever greater than 100.5 F despite taking acetaminophen or ibuprofen, have chest pain , difficulty breathing, are unable to swallow, or have any worsening of symptoms. - Billing Disposition and Condition Condition: STABLE Disposition: Home
== END 2018-08-07 17:31 | disposition home or self-care (01) ==
LOC: UCEAST 16:41
DX: J01.90 Acute sinusitis, unspecified (principal); H66.91 Otitis media, unspecified, right ear; Z88.0 Allergy status to penicillin
CPT/HCPCS: 99212; G0463

== ENCOUNTER 2019-04-26 10:11 | Emergency (ER) | payer BC ==
[2019-04-26 10:32] VITALS: BP 145/95
--- NOTE | 2019-04-26 10:46 | UC ---
General HPI - HPI Summary HPI Summary: Less than 48 hours developed cough, congestion, sore throat, body aches and fever 101. Tried sudafed. Last night had to sleep upright in the chair. COuld not tolerate her CPAP because it was making her cough so much. 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 Remote use of an inhaler in the past. Meds: Reviewed - History of Current Complaint Chief Complaint: UCGeneralIllness Stated Complaint: HEAD / CHEST CONGESTION COUGH SORE THROAT Time Seen by Provider: 04/26/19 10:32 Hx Last Menstrual Period: 04/12/18 Pain Intensity: 1 - Allergy/Home Medications Allergies/Adverse Reactions: Allergies Allergy/AdvReac Type Severity Reaction Status Date / Time amoxicillin Allergy Hives Verified 04/26/19 10:22 Penicillins Allergy Hives Verified 04/26/19 10:22 Home Medications: Home Medications Folic Acid/Multivit-Min/Lutein [Multi-Vitamin Gummies] 1 each PO DAILY 04/26/19 [History Confirmed 04/26/19] PMH/Surg Hx/FS Hx/Imm Hx Previously Healthy: Yes Other History Of: Negative For: HIV, Hepatitis B, Hepatitis C, Anticoagulant Therapy - Surgical History Surgical History: Yes Surgery Procedure, Year, and Place: spleen and gall bladder removed 1991. wisdom teeth 2009, 04/08/15, 05/25/2018 - Family History Known Family History: Positive: Cardiac Disease, Hypertension - Social History Alcohol Use: Occasionally Alcohol Amount: Weekends on occasion Substance Use Type: None Smoking Status (MU): Never Smoked Tobacco Have You Smoked in the Last Year: No - Immunization History Most Recent Influenza Vaccination: 12/31/17 Most Recent Tetanus Shot: 01/03/15 Most Recent Pneumonia Vaccination: never Review of Systems All Other Systems Reviewed And Are Negative: Yes Constitutional: Positive: Fever, Chills ENT: Positive: Sore Throat, Sinus Congestion Respiratory: Positive: Cough Physical Exam Triage Information Reviewed: Yes Appearance: Well-Appearing Vital Signs: Initial Vital Signs Temp 98.1 F 04/26/19 10:23 Pulse 79 04/26/19 10:23 Resp 16 04/26/19 10:23 BP 145/95 04/26/19 10:23 Pulse Ox 100 04/26/19 10:23 Vital Signs Reviewed: Yes ENT: Positive: Pharyngeal erythema, Nasal congestion, TMs normal, Tonsillar swelling Respiratory: Positive: Lungs clear, Decreased breath sounds, Other: - coarse cough Cardiovascular: Positive: RRR, No Murmur Course/Dx - Course Course Of Treatment: This is a 33 yr old with flu like symptoms Rapid flu: Flu b Plan Start Tamiflu as prescribed Recommend trial of Albuterol inhaler with spacer as needed as directed for cough /wheeze Rest fluids, ibuprofen as needed for pain/fever Would try FLonase and afrin nasal spray for 2-3 days for nasal congestion Continue with decongestant If symptoms persist or worsen recommend follow up with PCP or return to urgent care - Diagnoses Provider Diagnosis: Influenza B Discharge ED - Sign-Out/Discharge Documenting (check all that apply): Patient Departure All imaging exams completed and their final reports reviewed: No Studies - Discharge Plan Condition: Fair Disposition: HOME Prescriptions: Albuterol HFA INHALER* [Ventolin HFA Inhaler*] 2 puff INH Q4H PRN #1 mdi PRN Reason: Cough Oseltamivir CAP* [Tamiflu CAP*] 75 mg PO BID #10 cap Spacer/Holding Chamber (NF) [Easivent CHAMBER (NF)] 1 applic INH Q4HR PRN #1 device PRN Reason: Cough Patient Education Materials: Influenza (ED) Forms: *Work Release Referrals: Yoseph Haas MD [Primary Care Provider] - Additional Instructions: Start Tamiflu as prescribed Recommend trial of Albuterol inhaler with spacer as needed as directed for cough /wheeze Rest fluids, ibuprofen as needed for pain/fever Would try FLonase and afrin nasal spray for 2-3 days for nasal congestion Continue with decongestant If symptoms persist or worsen recommend follow up with PCP or return to urgent care - Billing Disposition and Condition Condition: FAIR Disposition: Home
[2019-04-26 10:51] LABS: Influenza B Molecular POSITIVE (Negative)
== END 2019-04-26 11:14 | disposition home or self-care (01) ==
LOC: UCEAST 10:11
DX: J10.1 Influenza due to other identified influenza virus with other respiratory manifestations (principal); R05 Cough; Z88.0 Allergy status to penicillin
CPT/HCPCS: 99212; G0463